=== PATIENT | male | born 2005 | race Native Hawaiian/Other Pacific Islander ===

== ENCOUNTER → 2025-06-14 16:22 | Outpatient (CLI) | payer OTHER, SELFPAY ==
--- NOTE | 2025-06-14 16:28 | DI.RAD.S_ITS ---
PROCEDURE: XR LUMBAR SPINE MIN 4V INDICATIONS: fall from ladder lumar/SI/R hip pain TECHNIQUE: 5 views of the lumbar spine were acquired, including bilateral oblique views. COMPARISON: None. FINDINGS: Bones: 5 nonrib-bearing vertebrae are present. There is normal bony alignment. No vertebral body compression fractures. No suspicious bony lesions. Soft tissues: Overlying bowel gas pattern is normal. No suspicious soft tissue calcifications. Oblique images: No pars defects. No significant bony foraminal stenosis. IMPRESSION: No acute lumbar spine fracture or dislocation. No pars defects. Dictated by: Khari Wright M.D. on 06/15/2025 at 17:12 Approved by: Khari Wright M.D. on 06/15/2025 at 17:13
--- NOTE | 2025-06-14 16:28 | DI.RAD.S_ITS ---
PROCEDURE: XR HIP W PEL IF DONE RT 2V INDICATIONS: fall from ladder lumar/SI/R hip pain TECHNIQUE: AP pelvis with lateral view(s) of the right hip(s). COMPARISON: None. FINDINGS: Bones: No fractures or dislocations. Pelvic ring appears intact. No evidence of avascular necrosis of femoral head. No suspicious bony lesions. Soft tissues: The visualized bowel gas pattern is normal. No suspicious soft tissue calcifications. IMPRESSION: No acute right hip fracture or dislocation. Dictated by: Khari Wright M.D. on 06/15/2025 at 17:17 Approved by: Khari Wright M.D. on 06/15/2025 at 17:17
== END ==
PROVIDERS: PCP Physician Assistant; Referring Provider Physician Assistant; Visit Provider Physician Assistant
DX: S73.101A Unspecified sprain of right hip, initial encounter (principal); M54.50 Low back pain, unspecified; W11.XXXA Fall on and from ladder, initial encounter
CPT/HCPCS: 72110; 73502